=== PATIENT | male | born 1935 | race Caucasian/White ===

== ENCOUNTER 2017-12-08 11:19 | Outpatient (CLI) | payer OTHER | END 2017-12-08 12:00 | disposition home or self-care (01) | LOC: NUCLEAR 11:19 | DX: M81.8 Other osteoporosis without current pathological fracture (principal) ==

== ENCOUNTER 2021-09-17 14:59 | Outpatient (CLI) | payer OTHER | END 2021-09-17 15:05 | disposition home or self-care (01) | LOC: RAD 14:59 | PROVIDERS: ATTEND Orthopaedic Surgery | DX: M25.562 Pain in left knee (principal); M25.552 Pain in left hip ==